=== PATIENT | female | born 1950 | race Hispanic/Latino ===

== ENCOUNTER → 2018-03-11 | Day surgery (SDC) | payer MEDICARE, OTHER ==
[2018-03-05 12:42] LABS: BASOPHILS % 0.6 % (0.0-1.0); EOSINOPHILS % 0.6 % (0.0-6.0); HEMATOCRIT 40.4 % (34.2-44.1); HEMOGLOBIN 13.3 g/dL (12.0-16.0); LYMPHOCYTES # (AUTO) 2.9 (1.0-3.2); LYMPHOCYTES % 43.3 % (18.0-39.1); MEAN CORPUSCULAR HEMOGLOBIN 30.1 pg (28-32); MEAN CORPUSCULAR HGB CONC 32.9 g/dL (31-35); MEAN CORPUSCULAR VOLUME 91.4 fL (81-99); MONOCYTES # (AUTO) 0.3 (0.2-0.8); MONOCYTES % 4.4 % (4.4-11.3); NEUTROPHILS # (AUTO) 3.5 (2.1-6.9); PLATELET COUNT 228 x10e3/uL (140-360); RED BLOOD COUNT 4.42 x10e6/uL (3.6-5.1); RED CELL DISTRIBUTION WIDTH 13.6 % (11.7-14.4)
[~2018-03-11] MED LIST: ANORO ELLIPTA INH; INHALER INH; MIDAZOLAM HCL 2 MG/2 ML VIAL ONE; PROPOFOL IV EMULSION 10 MG/ML 50 ML VIAL ONE
[2018-03-11 09:30] VITALS: BP 107/58
== END | disposition home or self-care (01) ==
LOC: OR 05:48
PROVIDERS: ATTEND Internal Medicine Gastroenterology
DX: R19.7 Diarrhea, unspecified (principal); R15.9 Full incontinence of feces; K57.30 Diverticulosis of large intestine without perforation or abscess without bleeding; K64.8 Other hemorrhoids; J45.909 Unspecified asthma, uncomplicated; Z88.6 Allergy status to analgesic agent; Z91.041 Radiographic dye allergy status; Z91.040 Latex allergy status; Z88.0 Allergy status to penicillin; Z91.048 Other nonmedicinal substance allergy status; Z01.810 Encounter for preprocedural cardiovascular examination; Z01.812 Encounter for preprocedural laboratory examination; Z79.02 Long term (current) use of antithrombotics/antiplatelets; Z79.82 Long term (current) use of aspirin; Z79.84 Long term (current) use of oral hypoglycemic drugs
CPT/HCPCS: 36415; 45378; 45380; 85025; 88305; 93005; J2250

== ENCOUNTER → 2018-06-17 | Day surgery (SDC) | payer MEDICARE ==
[2018-06-11 15:48] LABS: BASOPHILS % 0.5 % (0.0-1.0); EOSINOPHILS % 0.5 % (0.0-6.0); HEMATOCRIT 37.9 % (34.2-44.1); HEMOGLOBIN 12.5 g/dL (12.0-16.0); LYMPHOCYTES % 45.1 % (18.0-39.1); MEAN CORPUSCULAR HEMOGLOBIN 30.3 pg (28-32); MEAN CORPUSCULAR VOLUME 91.8 fL (81-99); MONOCYTES # (AUTO) 0.3 (0.2-0.8); MONOCYTES % 4.4 % (4.4-11.3); NEUTROPHILS # (AUTO) 3.3 (2.1-6.9); NEUTROPHILS % 49.3 % (38.7-80.0); PLATELET COUNT 208 x10e3/uL (140-360); RED BLOOD COUNT 4.13 x10e6/uL (3.6-5.1); RED CELL DISTRIBUTION WIDTH 13.4 % (11.7-14.4)
[~2018-06-17] MED LIST changes: +ALBUTEROL0.63 MG/3 INH; +FENTANYL CITRATE/PF 100MCG/2 ML INJ ONE; +PROAIR HFA INH8.5 GM INH
--- OUTSIDE RECORDS SUMMARY | 2018-06-17 10:01 | XMS REPORT ---
Author Author Admin, [place] Organization [facility] Address [address] [address] Phone Allergies, Adverse Reactions, Alerts Allergy Name Reaction Description Start Date Severity Status Provider LATEX Burning of skin Severe Active Estiven Erazo MD IODINE Seizures Critical Active Estiven Erazo MD OXYCODONE HCL ER Swelling and rash Critical Active Estiven Erazo MD PCN Seizures Critical Active Estiven Erazo MD Conditions or Problems Problem Name Problem Code Onset Date Status Entry Date Provider Comment Standard Description Annotate Diverticulosis, colon 562.10 Active Estiven Erazo MD Diverticulosis of colon (without mention of hemorrhage) Preoperative examination V72.84 Active Estiven Erazo MD Preoperative examination, unspecified Vaccine against flu/influenza V04.8 Active Estiven Erazo MD Need for prophylactic vaccination and inoculation against other viral diseases Viral infection 079.99 Active Christian Arredondo MD Unspecified viral infection Ankle pain, right 719.47 Active Estiven Erazo MD Pain in joint involving ankle and foot BMI 32.0-32.9 Active Estiven Erazo MD Body Mass Index 32.0-32.9, adult Pain in left hip 719.45 Active Estiven Erazo MD Pain in joint involving pelvic region and thigh Wrist pain, right 719.43 Active Estiven Erazo MD Pain in joint involving forearm Asthma, intermittent, with acute exacerbation 493.92 Active Estiven Erazo MD Asthma, unspecified with (acute) exacerbation ALLERGIC RHINITIS 477.9 Active Coleen Mix D.O. Allergic rhinitis, cause unspecified Osteopenia 733.90 Active Estiven Erazo MD Disorder of bone and cartilage, unspecified Obesity Active Estiven Erazo MD Obesity, unspecified Cough 786.2 Active Estiven Erazo MD Cough Cystitis, chronic interstitial 595.1 Active Estiven Erazo MD Chronic interstitial cystitis Mild intermittent asthma, uncomplicated 493.90 Active Estiven Erazo MD Asthma, unspecified Urinary incontinence 788.30 Active Estiven Erazo MD Urinary incontinence, unspecified Diabetes, Screening for V77.1 Inactive Estiven Erazo MD Screening for diabetes mellitus Diabetes, Screening for ICD-V77.1 Inactive Estiven Erazo MD Annual exam ICD-V70.0 Inactive Estiven Erazo MD BMI 30.0-30.9 Inactive Estiven Erazo MD Cholesterol, Screening ICD-V77.91 Inactive Estiven Erazo MD Mammogram, Screening ICD-V76.12 Inactive Estiven Erazo MD Osteoporosis, Screening ICD-V82.81 Inactive Estiven Erazo MD Vaccination for strep pneumonia with Prevnar 13 ICD-V03.82 Inactive Estiven Erazo MD Vaccine against flu/influenza ICD-V04.8 Inactive Estiven Erazo MD Annual exam V70.0 Resolved Estiven Erazo MD Routine general medical examination at a health care facility BMI 30.0-30.9 Resolved Estiven Erazo MD Body Mass Index 30.0-30.9, adult Cholesterol, Screening V77.91 Resolved Estiven Erazo MD Screening for lipoid disorders Mammogram, Screening V76.12 Resolved Estiven Erazo MD Other screening mammogram Osteoporosis, Screening V82.81 Resolved Estiven Erazo MD Screening for osteoporosis Vaccination for strep pneumonia with Prevnar 13 V03.82 Resolved Estiven Erazo MD Need for prophylactic vaccination against Streptococcus pneumoniae [pneumococcus] Vaccine against flu/influenza V04.8 Resolved Estiven Erazo MD Need for prophylactic vaccination and inoculation against other viral diseases Medication List Medication Instructions Start Date Stop Date Generic Name NDC Status Provider Patient Instruction PROMETHAZINE VC/CODEINE 6.25-5-10 MG/5ML ORAL SYRUP 1 tsp by mouth every 4 hours as needed for cough [id number] Active Pearl Murillo MD R2 Active ONDANSETRON 8 MG ORAL TABLET DISINTEGRATING 1 tab By Mouth Three Times a Day As Needed nausea ONDANSETRON 95713809573 Active Estiven Erazo MD Active MOMETASONE FUROATE 50 MCG/ACT NASAL SUSPENSION 1 spray in each nostril Twice a Day MOMETASONE FUROATE 53725130579 Active Estiven Erazo MD Active NAPROXEN 375 MG ORAL TABLET 1 tab By Mouth Twice a Day As Needed for pain NAPROXEN 71726993832 Active Estiven Erazo MD Active LORATADINE 5 MG/5ML ORAL SYRUP 10 ml by mouth nightly LORATADINE 80753954119 Active Coleen M Ehdaie D.O. Active FELA-CITRATE PLUS VITAMIN D 250-100 MG-UNIT ORAL TABLET 1 tab By Mouth Twice a Day CALCIUM CITRATE-VITAMIN D 66837754421 Active Estiven Erazo MD Active A + D PERSONAL CARE WIPES use daily As Needed INCONTINENCE SUPPLY DISPOSABLE 84050802055 Active Estiven Erazo MD Active ADVOCATE UNDERPADS use daily As Needed INCONTINENCE SUPPLY DISPOSABLE 68030706314 Active Estiven Erazo MD Active ALBUTEROL SULFATE (2.5 MG/3ML) 0.083% INHALATION NEBULIZATION SOLUTION 1 via Hand held neb every 4 - 6 hours as needed ALBUTEROL SULFATE 16209858549 Active Estiven Erazo MD Active DEPEND ADJUSTABLE UNDERWEAR LG use daily As Needed INCONTINENCE SUPPLY DISPOSABLE 26844658607 Active Estiven Erazo MD Active PROAIR HFA 108 (90 BASE) MCG/ACT INHALATION AEROSOL SOLUTION 2 puffs every 4 - 6 hours as needed ALBUTEROL SULFATE 66465195707 Active Estiven Erazo MD Active AZITHROMYCIN 250 MG ORAL TABLET 2 tablets by mouth on day one then one tablet by mouth each day for a total of 5 days AZITHROMYCIN 250 MG ORAL TABLET 871123 AZITHROMYCIN Inactive PREDNISONE 20 MG ORAL TABLET 2 tabs By Mouth daily x 5 days PREDNISONE 20 MG ORAL TABLET 896904 PREDNISONE Inactive BROMFED DM 30-2-10 MG/5ML ORAL SYRUP 5 ml By Mouth Three Times a Day As Needed BROMFED DM 30-2-10 MG/5ML ORAL SYRUP 3879064 [id number] Inactive AZITHROMYCIN 250 MG ORAL TABLET 2 tablets by mouth on day one then one tablet by mouth each day for a total of 5 days AZITHROMYCIN 250 MG ORAL TABLET 270225 AZITHROMYCIN Inactive AZITHROMYCIN 250 MG ORAL TABLET 2 tablets by mouth on day one then one tablet by mouth each day for a total of 5 days AZITHROMYCIN 250 MG ORAL TABLET 324495 AZITHROMYCIN Inactive PROMETHAZINE-CODEINE 6.25-10 MG/5ML ORAL SYRUP 5 ml By Mouth Three Times a Day As Needed for cough PROMETHAZINE-CODEINE 6.25-10 MG/5ML ORAL SYRUP 645931 PROMETHAZINE-CODEINE Inactive PROMETHAZINE-CODEINE 6.25-10 MG/5ML ORAL SYRUP 5 ml By Mouth Three Times a Day As Needed for cough PROMETHAZINE-CODEINE 6.25-10 MG/5ML ORAL SYRUP 459462 PROMETHAZINE-CODEINE Inactive FLONASE ALLERGY RELIEF 50 MCG/ACT NASAL SUSPENSION 2 sprays each nostril every day FLONASE ALLERGY RELIEF 50 MCG/ACT NASAL SUSPENSION 4830954 FLUTICASONE PROPIONATE Inactive PROMETHAZINE-CODEINE 6.25-10 MG/5ML ORAL SYRUP 5 ml po Four Times a Day As Needed for cough PROMETHAZINE-CODEINE 6.25-10 MG/5ML ORAL SYRUP 495685 PROMETHAZINE-CODEINE Inactive AZITHROMYCIN 250 MG ORAL TABLET 2 tablets by mouth on day one then one tablet by mouth each day for a total of 5 days AZITHROMYCIN 79761767513 No Longer Active Estiven Erazo MD Active PREDNISONE 20 MG ORAL TABLET 2 tabs By Mouth daily x 5 days PREDNISONE 45056987696 No Longer Active Estiven Erazo MD Active BROMFED DM 30-2-10 MG/5ML ORAL SYRUP 5 ml By Mouth Three Times a Day As Needed [id number] 22735591826 No Longer Active Christian Arredondo MD Active AZITHROMYCIN 250 MG ORAL TABLET 2 tablets by mouth on day one then one tablet by mouth each day for a total of 5 days AZITHROMYCIN 42791833984 No Longer Active Estiven Erazo MD Active AZITHROMYCIN 250 MG ORAL TABLET 2 tablets by mouth on day one then one tablet by mouth each day for a total of 5 days AZITHROMYCIN 97979079422 No Longer Active Estiven Erazo MD Active PROMETHAZINE-CODEINE 6.25-10 MG/5ML ORAL SYRUP 5 ml By Mouth Three Times a Day As Needed for cough PROMETHAZINE-CODEINE 70306126506 No Longer Active Estiven Erazo MD Active PROMETHAZINE-CODEINE 6.25-10 MG/5ML ORAL SYRUP 5 ml By Mouth Three Times a Day As Needed for cough PROMETHAZINE-CODEINE 94131914619 No Longer Active Estiven Erazo MD Active FLONASE ALLERGY RELIEF 50 MCG/ACT NASAL SUSPENSION 2 sprays each nostril every day FLUTICASONE PROPIONATE 65091615220 No Longer Active Estiven Erazo MD Active PROMETHAZINE-CODEINE 6.25-10 MG/5ML ORAL SYRUP 5 ml po Four Times a Day As Needed for cough PROMETHAZINE-CODEINE 37759781445 No Longer Active Estiven Erazo MD Active Immunizations Vaccine Administration Date Value Standard Description influenza immunization (Flu Vax) has been administered given influenza virus vaccine, unspecified formulation influenza immunization (Flu Vax) has been administered given influenza virus vaccine, unspecified formulation PEDIATRIC PNEUMOCOCCAL VACCINE ([id number]) #1 given pneumococcal conjugate vaccine, 13 valent Vital Signs Date Name Value Unit Range Description blood pressure, diastolic, second observation 78 mm[Hg] BP ellington blood pressure, diastolic 78 mm[Hg] BP ellington blood pressure, systolic, second observation 123 mm[Hg] BP sys blood pressure, systolic 123 mm[Hg] BP sys height E&M 59 [in_us] Bdy height pulse rate E&M 88 /min Heart rate respiratory rate E&M 18 /min Resp rate temperature E&M 98 [degF] Body temperature weight E&M 158 [lb_av] Weight Measured blood pressure, diastolic 73 mm[Hg] BP ellington blood pressure, systolic 111 mm[Hg] BP sys height E&M 59 [in_us] Bdy height pulse rate E&M 92 /min Heart rate respiratory rate E&M 20 /min Resp rate temperature E&M 97.8 [degF] Body temperature weight E&M 159.80 [lb_av] Weight Measured blood pressure, diastolic 74 mm[Hg] BP ellington blood pressure, systolic 120 mm[Hg] BP sys height E&M 59 [in_us] Bdy height pulse rate E&M 87 /min Heart rate respiratory rate E&M 16 /min Resp rate temperature E&M 98.1 [degF] Body temperature weight E&M 157 [lb_av] Weight Measured blood pressure, diastolic 75 mm[Hg] BP ellington blood pressure, systolic 137 mm[Hg] BP sys height E&M 59 [in_us] Bdy height pulse rate E&M 93 /min Heart rate respiratory rate E&M 22 /min Resp rate temperature E&M 98 [degF] Body temperature weight E&M 157.60 [lb_av] Weight Measured blood pressure, diastolic 85 mm[Hg] BP ellington blood pressure, systolic 131 mm[Hg] BP sys height E&M 59 [in_us] Bdy height pulse rate E&M 83 /min Heart rate respiratory rate E&M 18 /min Resp rate temperature E&M 98.0 [degF] Body temperature weight E&M 159.60 [lb_av] Weight Measured blood pressure, diastolic 75 mm[Hg] BP ellington blood pressure, systolic 123 mm[Hg] BP sys height E&M 59 [in_us] Bdy height pulse rate E&M 79 /min Heart rate respiratory rate E&M 16 /min Resp rate temperature E&M 97.9 [degF] Body temperature weight E&M 162 [lb_av] Weight Measured blood pressure, diastolic 75 mm[Hg] BP ellington blood pressure, systolic 116 mm[Hg] BP sys height E&M 59 [in_us] Bdy height pulse rate E&M 80 /min Heart rate respiratory rate E&M 19 /min Resp rate temperature E&M 97.9 [degF] Body temperature weight E&M 161 [lb_av] Weight Measured blood pressure, diastolic 75 mm[Hg] BP ellington blood pressure, systolic 118 mm[Hg] BP sys height E&M 59 [in_us] Bdy height pulse rate E&M 78 /min Heart rate respiratory rate E&M 94 /min Resp rate temperature E&M 98.1 [degF] Body temperature weight E&M 158.13 [lb_av] Weight Measured blood pressure, diastolic 77 mm[Hg] BP ellington blood pressure, systolic 136 mm[Hg] BP sys height E&M 59 [in_us] Bdy height pulse rate E&M 80 /min Heart rate respiratory rate E&M 20 /min Resp rate temperature E&M 98.5 [degF] Body temperature weight E&M 153 [lb_av] Weight Measured blood pressure, diastolic, second observation 90 mm[Hg] BP ellington blood pressure, diastolic 90 mm[Hg] BP ellington blood pressure, systolic, second observation 132 mm[Hg] BP sys blood pressure, systolic 132 mm[Hg] BP sys height E&M 59 [in_us] Bdy height pulse rate E&M 92 /min Heart rate respiratory rate E&M 18 /min Resp rate temperature E&M 97.7 [degF] Body temperature weight E&M 152.60 [lb_av] Weight Measured blood pressure, diastolic 85 mm[Hg] BP ellington blood pressure, systolic 134 mm[Hg] BP sys height E&M 59 [in_us] Bdy height pulse rate E&M 105 /min Heart rate respiratory rate E&M 16 /min Resp rate temperature E&M 98.0 [degF] Body temperature weight E&M 150.20 [lb_av] Weight Measured Diagnostic Results Date Name Value Unit Range Description Lab Report: CBC With Differential/Platelet, Comp. Metabolic Panel (14), ... - Hematology hematocrit, blood 40.1 % 34.0-46.6 Lab Report: CBC With Differential/Platelet, Comp. Metabolic Panel (14), ... - Chemistry sodium, serum 141 mmol/L 134-144 Lab Report: CBC With Differential/Platelet, Comp. Metabolic Panel (14), ... - Hematology neutrophils as percent of blood leukocytes 57 % Not Estab. basophils as percent of blood leukocytes 0 % Not Estab. Lab Report: CBC With Differential/Platelet, Comp. Metabolic Panel (14), ... - Chemistry carbon dioxide, venous blood 23 mmol/L 20-29 Lab Report: Uric Acid - Chemistry uric acid, serum 4.7 mg/dL 2.5-7.1 Lab Report: CBC With Differential/Platelet, Comp. Metabolic Panel (14), ... - Chemistry chloride, serum 101 mmol/L 96-106 calcium, serum 9.5 mg/dL 8.7-10.3 urea nitrogen, blood 12 mg/dL 8-27 alanine aminotransferase (SGPT), serum 21 U/L 0-32 Lab Report: CBC With Differential/Platelet, Comp. Metabolic Panel (14), ... - Hematology mean corpuscular hemoglobin, RBC 29.4 pg 26.6-33.0 mean corpuscular hemoglobin concentration, RBC 32.2 G/DL % 31.5-35.7 Lab Report: CBC With Differential/Platelet, Comp. Metabolic Panel (14), ... - Chemistry protein, total, serum 7.4 g/dL 6.0-8.5 alkaline phosphatase, serum 122 U/L 39-117 Lab Report: CBC With Differential/Platelet, Comp. Metabolic Panel (14), ... - Hematology erythrocyte (RBC) count 4.39 X10E6/UL 10*6/mm3 3.77-5.28 hemoglobin, blood 12.9 g/dL 11.1-15.9 Lab Report: CBC With Differential/Platelet, Comp. Metabolic Panel (14), ... - Chemistry Absolute Neutrophils 4.1 X10E3/UL 10*3/uL 1.4-7.0 Lab Report: CBC With Differential/Platelet, Comp. Metabolic Panel (14), ... - Hematology erythrocyte sedimentation rate 2 mm/h 0-40 Lab Report: CBC With Differential/Platelet, Comp. Metabolic Panel (14), ... - Chemistry urea nitrogen/creatinine ratio, serum 17 12-28 Lab Report: CBC With Differential/Platelet, Comp. Metabolic Panel (14), ... - Hematology lymphocytes as percent of blood leukocytes 39 % Not Estab. Office Visit: Acute Visit Dr erazo rm 2 - Chemistry hemoglobin A1C, blood, as % of total hemoglobin 5.5 % Lab Report: CBC With Differential/Platelet, Comp. Metabolic Panel (14), ... - Hematology mean corpuscular volume, RBC 91 fL 79-97 Lab Report: CBC With Differential/Platelet, Comp. Metabolic Panel (14), ... - Genetics/fertility eGFR if 104 mL/min/1.73m2 >59 Lab Report: CBC With Differential/Platelet, Comp. Metabolic Panel (14), ... - Hematology basophil count, absolute 0.0 x10E3/uL 0.0-0.2 monocytes as percent of blood leukocytes 4 % Not Estab. Lab Report: CBC With Differential/Platelet, Comp. Metabolic Panel (14), ... - Chemistry globulin, serum 2.7 1.5-4.5 creatinine, serum 0.70 mg/dL 0.57-1.00 Estimated Glomerular Filtration Rate (calc) 90 mL/min/1.73m2 >59 albumin/globulin ratio, serum 1.7 1.2-2.2 bilirubin, serum, total 0.7 mg/dL 0.0-1.2 Lab Report: CBC With Differential/Platelet, Comp. Metabolic Panel (14), ... - Hematology Eosinophil Absolute Count 0.0 X10E3/UL 10*3/uL 0.0-0.4 eosinophils as percent of blood leukocytes 0 % Not Estab. Lab Report: CBC With Differential/Platelet, Comp. Metabolic Panel (14), ... - Chemistry blood glucose, random 92 mg/dL 65-99 aspartate aminotransferase (SGOT), serum 22 U/L 0-40 Lab Report: CBC With Differential/Platelet, Comp. Metabolic Panel (14), ... - Hematology red blood cell distribution width 14.6 % 12.3-15.4 Lab Report: CBC With Differential/Platelet, Comp. Metabolic Panel (14), ... - Serology rheumatoid factor <10.0 IU/mL [iU]/mL 0.0-13.9 Lab Report: CBC With Differential/Platelet, Comp. Metabolic Panel (14), ... - Hematology leukocyte count, blood 7.4 X10E3/UL 10*3/mm3 3.4-10.8 Lab Report: CBC With Differential/Platelet, Comp. Metabolic Panel (14), ... - Chemistry potassium, serum 4.3 mmol/L 3.5-5.2 Lab Report: CBC With Differential/Platelet, Comp. Metabolic Panel (14), ... - Hematology monocyte count, blood, automated 0.3 X10E3/UL 10*3/uL 0.1-0.9 Lab Report: CBC With Differential/Platelet, Comp. Metabolic Panel (14), ... - Chemistry immature granulocytes, percentage of total cells, blood 0 % Not Estab. albumin, serum 4.7 g/dL 3.6-4.8 Lab Report: CBC With Differential/Platelet, Comp. Metabolic Panel (14), ... - Hematology platelet count 254 X10E3/UL 10*3/mm3 724-320 9170/06/27 lymphocyte count, blood, automated 2.9 X10E3/UL 10*3/mm3 0.7-3.1 Encounters Date Encounter Provider Code Facility 23:01:55 TECHNICAL ADMINISTRATIVE ASSISTANT Est Patient Exp Problem - 49315 Estiven Erazo MD [id number] [facility] 16:41:54 CDT Est Patient Exp Problem - 30286 Estiven Erazo MD [id number] [facility] 17:15:45 CDT Est Patient Exp Problem - 26542 Estiven Erazo MD CPT-23641 [facility] 17:59:05 CDT Est Patient Exp Problem - 38773 Pearl Murillo MD CPT-80485 [facility] 12:31:51 CDT Est Patient Exp Problem - 17629 Estiven Erazo MD [id number] [facility] 13:32:22 CDT Est Patient Exp Problem - 08455 Estiven Erazo MD CPT-09417 [facility] 12:53:02 CDT Est Patient Exp Problem - 34188 Estiven Erazo MD CPT-86157 [facility] 13:46:07 CDT Est Patient Exp Problem - 91889 Estiven Erazo MD CPT-70305 [facility] 12:40:34 CDT Est Patient Exp Problem - 06083 Estiven Erazo MD CPT-99130 [facility] 15:59:37 CDT Est Patient Exp Problem - 55499 Coleen Mix D.O. CPT-04539 [facility] 11:47:34 TECHNICAL ADMINISTRATIVE ASSISTANT New Patient Detailed - 30634 Estiven Erazo MD CPT-56983 [facility] Procedures Code Procedure Name Date Entry Date Standard Description CPT-J1885 Injection, ketorolac tromethamine (toradol), per 15 mg 12:31:51 CDT CPT-44798 HEMOGLOBIN A1C - In House 13:46:07 CDT CPT-49362 Admin of Vaccine - Injection - Each Add'l 11:47:34 TECHNICAL ADMINISTRATIVE ASSISTANT CPT-56127 Admin of Vaccine - Injection - 1 11:47:34 TECHNICAL ADMINISTRATIVE ASSISTANT CPT-65638 INFLUENZA VACCINE QUADRIVALENT 3 YRS PLUS IM 11:47:34 TECHNICAL ADMINISTRATIVE ASSISTANT CPT-47981 Prevnar (PCV13) IM 11:47:34 TECHNICAL ADMINISTRATIVE ASSISTANT CPT-J2920 Injection, methylprednisolone sodium succinate, up to 40 mg 12:40:34 CDT
--- OUTSIDE RECORDS SUMMARY | 2018-06-17 10:01 | XMS REPORT | Clinical Summary ---
Author Author [facility] Organization [facility] Address Unknown Phone Unavailable Care Team Providers Care Director Of Music Therapy Name Role Phone Ankur Buchanan MD PCP Allergies Comments Active Allergy Reactions Severity Noted Date Codeine 10/03/2016 seizures Iodine Other (See 10/03/2016 Comments) Latex 10/03/2016 Penicillins Diarrhea 10/03/2016 Acetaminophen 10/03/2016 Medications End Date Status Medication Sig Dispensed Refills Start Date Active ondansetron (ZOFRAN) 4 MG 0 tablet 7 Active albuterol (PROAIR HFA) 90 2 puffs every 0 mcg/actuation inhaler 4 - 6 hours 8 as needed Active CALCIUM CITRATE-VITAMIN 1 tab By 0 D2 ORAL Mouth Twice a 8 Day Active loratadine 10 mg capsule 10 ml by 0 mouth nightly 8 01/06/2018 Discontinued naproxen (NAPROSYN) 375 Take 375 mg 0 MG tablet by mouth 2 (two) times a day with meals. 02/05/2018 nabumetone (RELAFEN) 500 Take 1 tablet 60 tablet 5 MG tablet (500 mg 8 total) by mouth 2 (two) times a day for 60 doses. Active Problems Problem Noted Date Greater trochanteric bursitis of left hip 01/06/2018 Moderate persistent asthma without complication 10/03/2016 Encounters Care Team Description Date Type Specialty Estiven Erazo MD Cough 03/10/2018 Hospital Radiology Encounter Estiven Erazo MD Cough 03/10/2018 Hospital Radiology Encounter Hemal Juarez MD Greater trochanteric bursitis of left hip (Primary Dx) 01/06/2018 Office Visit Orthopedic Surgery Estiven Erazo MD Left hip pain 12/19/2017 Hospital Radiology Encounter Estiven Erazo MD Left hip pain 12/19/2017 Hospital Radiology Encounter after 06/16/2017 Family History Medical History Relation Name Comments Liver disease Father Cancer Mother lung Relation Name Status Comments Father Mother Social History Date Tobacco Use Types Packs/Day Years Used Never Smoker Smokeless Tobacco: Never Used Sex Assigned at Date Recorded Not on file Industry Job Start Date Occupation Not on file Not on file Not on file Travel End Travel History Travel Start No recent travel history available. Last Filed Vital Signs Time Taken Vital Sign Reading - Blood Pressure - - Pulse - - Temperature - - Respiratory Rate - - Oxygen Saturation - - Inhaled Oxygen - Concentration 01/06/2018 11:11 AM CDT Weight 73.5 kg (162 lb) 01/06/2018 11:11 AM CDT Height 149.9 cm (4' 11") 01/06/2018 11:11 AM CDT Body Mass Index 32.72 Plan of Treatment Health Maintenance Due Date Last Done Comments BREAST CANCER SCREENING 2000 COLON CANCER SCREENING 2000 SHINGLES VACCINES (1 of 2000 2) PNEUMOCOCCAL 2015 POLYSACCHARIDE VACCINE AGE 65 AND OVER INFLUENZA VACCINE 02/27/2019 Postponed from 01/08/2018 (Patient Refused) PNEUMOCOCCAL-13 02/27/2019 Postponed from 2015 (Patient Refused) Procedures Comments Procedure Name Priority Date/Time Associated Diagnosis XR CHEST 2 VW Routine 03/10/2018 Cough 12:36 PM CDT XR ANKLE 2 VW RIGHT Routine 03/10/2018 Cough 12:35 PM CDT XR HIP 2-3 VIEWS LEFT Routine 12/19/2017 Left hip pain 3:42 PM CDT XR WRIST 3+ VW RIGHT Routine 12/19/2017 Left hip pain 3:41 PM CDT after 06/16/2017 Results * XR Chest 2 Vw (03/10/2018 12:36 PM CDT) Narrative Performed At EXAMINATION:XR CHEST 2 VW [facility] CLINICAL HISTORY: R05 Cough COMPARISON:10/23/2012 IMPRESSION: No active disease in the chest. Lungs are clear. Cardiomediastinal silhouette is within normal limits. No effusion or pneumothorax noted. Visualized osseous structures are intact. [facility]-[id number] Procedure Note Interface, Radiology Results Incoming - 03/10/2018 12:48 PM CDT EXAMINATION: XR CHEST 2 VW CLINICAL HISTORY: R05 Cough COMPARISON: 10/23/2012 IMPRESSION: No active disease in the chest. Lungs are clear. Cardiomediastinal silhouette is within normal limits. No effusion or pneumothorax noted. Visualized osseous structures are intact. [facility]-[id number] Performing Organization Address [facility] Phone Number [facility] [address] [place] [address] * XR Ankle 2 Vw Right (03/10/2018 12:35 PM CDT) Narrative Performed At EXAMINATION:XR ANKLE 2 VW RIGHT [facility] INDICATION:R05 Cough COMPARISON:None IMPRESSION: 1.No acute fracture or dislocation. Ankle mortise is symmetric. Evaluation is slightly limited by lack of oblique view. 2.Mineralization in the region of the Achilles tendon could be related to prior partial tears or mineral deposition. Plantar calcaneal spur is present. 3.Diffuse soft tissue swelling about the ankle. [facility]-[id number] Procedure Note Interface, Radiology Results Incoming - 03/10/2018 12:53 PM CDT EXAMINATION: XR ANKLE 2 VW RIGHT INDICATION: R05 Cough COMPARISON:None IMPRESSION: 1. No acute fracture or dislocation. Ankle mortise is symmetric. Evaluation is slightly limited by lack of oblique view. 2. Mineralization in the region of the Achilles tendon could be related to prior partial tears or mineral deposition. Plantar calcaneal spur is present. 3. Diffuse soft tissue swelling about the ankle. [facility]-[id number] Performing Organization Address [facility]/[employer] Phone Number [facility] [address] [place] [address] * XR Hip 2-3 View Left (12/19/2017 3:42 PM CDT) Narrative Performed At EXAMINATION:XR HIP 2-3 VIEWS LEFT [facility] CLINICAL HISTORY:M25.552 Pain in left hip COMPARISON:None. IMPRESSION: There is no evidence of left hip fracture, dislocation, or joint effusion. Bone mineralization is normal. Mild degenerative changes are present with marginal osteophyte formation. Presumed pelvic phleboliths are seen. [facility]-[id number] Procedure Note Hm Interface, Radiology Results Incoming - 12/19/2017 3:56 PM CDT EXAMINATION: XR HIP 2-3 VIEWS LEFT CLINICAL HISTORY: M25.552 Pain in left hip COMPARISON: None. IMPRESSION: There is no evidence of left hip fracture, dislocation, or joint effusion. Bone mineralization is normal. Mild degenerative changes are present with marginal osteophyte formation. Presumed pelvic phleboliths are seen. [id number] Performing Organization Address City/[facility]/Zipcode Phone Number [facility] [address] [place] [address] * XR Wrist 3+ Vw Right (12/19/2017 3:41 PM CDT) Narrative Performed At EXAMINATION:XR WRIST 3VW RIGHT [facility] CLINICAL HISTORY:M25.552 Pain in left hip COMPARISON:None. IMPRESSION: There is no evidence of acute right wrist fracture or dislocation. [id number] Procedure Note Hm Interface, Radiology Results Incoming - 12/19/2017 3:57 PM CDT EXAMINATION: XR WRIST 3 VW RIGHT CLINICAL HISTORY: M25.552 Pain in left hip COMPARISON: None. IMPRESSION: There is no evidence of acute right wrist fracture or dislocation. [id number] Performing Organization Address [facility] Phone Number [facility] [address] [place] [address] after 06/16/2017 Insurance Payer Benefit Subscriber ID Type Phone Address Plan / Group MEDICARE MEDICARE xxxxxxxxxxx Medicare [place], [place] PART A AND B COMMERCIAL MISC MISC xxxxxxxxx Commercial COMMERCIAL Advance Directives Patient has advance care planning documents on file. For more information, jess worthington contact: Kendell Min [address] [place] [address]
[2018-06-17 12:45] VITALS: BP 108/71
== END | disposition home or self-care (01) ==
LOC: OR 09:57
PROVIDERS: ATTEND Internal Medicine Gastroenterology
DX: K21.0 Gastro-esophageal reflux disease with esophagitis (principal); K29.50 Unspecified chronic gastritis without bleeding; K31.89 Other diseases of stomach and duodenum; K44.9 Diaphragmatic hernia without obstruction or gangrene; K59.00 Constipation, unspecified; I25.10 Atherosclerotic heart disease of native coronary artery without angina pectoris; J45.909 Unspecified asthma, uncomplicated; Z88.6 Allergy status to analgesic agent; Z91.040 Latex allergy status; Z88.0 Allergy status to penicillin; Z91.048 Other nonmedicinal substance allergy status; Z01.810 Encounter for preprocedural cardiovascular examination; Z01.812 Encounter for preprocedural laboratory examination; Z79.82 Long term (current) use of aspirin; Z79.84 Long term (current) use of oral hypoglycemic drugs; Z79.02 Long term (current) use of antithrombotics/antiplatelets
CPT/HCPCS: 36415; 43239; 85025; 88305; 88312; 93005; J2250

== ENCOUNTER → 2018-11-27 | Outpatient (CLI) | payer MEDICARE ==
[~2018-11-27] MED LIST changes: -FENTANYL CITRATE/PF 100MCG/2 ML INJ ONE; +GADOBENATE DIMEGLUMINE 1 ML IV ONE; -MIDAZOLAM HCL 2 MG/2 ML VIAL ONE; -PROPOFOL IV EMULSION 10 MG/ML 50 ML VIAL ONE; +SODIUM CHLORIDE 0.9% 100 ML 100 ML ONE
--- NOTE | 2018-11-28 16:04 | Diagnostic Imaging Report ---
MRI ABDOMEN AND PELVIS Indication: 2 years of diffuse abdominal and pelvic pain Technique: Multiplanar, multi-sequential MRI was performed both before and after the intravenous administration of 14 cc of gadolinium. Comparison: None Findings: Lung bases: Mild bibasilar atelectasis. Visualized portion of the mediastinum is normal Liver: Normal T1 and T2 signal. The liver measures 16 cm in maximum dimension. No evidence of mass. Normal enhancement Gallbladder: Absent Biliary tree: Mild central intrahepatic biliary duct distention. The cystic duct is normal in appearance. The proximal common bile duct measures 9 mm in diameter. The mid common bile duct measures 8 mm in diameter. The distal common bile duct measures 4 mm in diameter. No intraluminal filling defects. No evidence of beading or narrowing. Pancreas: Normal T1 and T2 signal. No mass or ductal dilatation. Spleen: Normal size and signal. No mass Adrenal glands: No mass. Kidneys: No hydronephrosis. Symmetric enhancement of the parenchyma. No evidence of mass Lymph nodes: No enlarged abdominal, mesenteric, or retroperitoneal lymph nodes Bowel: Stomach:Normal. Small bowel:Normal in diameter with normal wall thickness. Large bowel:Normal in diameter with normal wall thickness. Appendix: Not visualized and may be absent. Bladder: Normal. Uterus: Absent. There are no adnexal masses. Peritoneum/retroperitoneum: No free fluid or fluid collection. Vasculature: Normal in morphology and widely patent. Bones: Normal marrow signal. Mild levoscoliosis of the lumbar spine. Diffuse degenerative changes of the spine. Soft tissues: Midline abdominal wall scar. No evidence of hernia. IMPRESSION: 1. Postoperative changes as described above. No evidence of mass or lymphadenopathy on this general abdomen protocol MRI to explain diffuse abdominal pain. MRI is not a substitute for screening studies such as colonoscopy. 2. Mild biliary ductal distention secondary to reservoir effect. Signed by: Dr. Bony Daley MD on 11/28/2018 4:01 PM
== END ==
LOC: MRI 12:50
PROVIDERS: ATTEND Internal Medicine Gastroenterology
DX: R10.84 Generalized abdominal pain (principal)
CPT/HCPCS: 72197; 74183

== ENCOUNTER → 2018-12-26 | Day surgery (SDC) | payer MEDICARE, OTHER ==
[2018-12-24 16:06] LABS: BASOPHILS % 0.3 % (0.0-1.0); EOSINOPHILS # (AUTO) 0.1 (0.0-0.4); EOSINOPHILS % 0.7 % (0.0-6.0); HEMATOCRIT 38.9 % (34.2-44.1); HEMOGLOBIN 12.7 g/dL (12.0-16.0); LYMPHOCYTES % 43.8 % (18.0-39.1); MEAN CORPUSCULAR HEMOGLOBIN 29.3 pg (28-32); MEAN CORPUSCULAR HGB CONC 32.6 g/dL (31-35); MEAN CORPUSCULAR VOLUME 89.8 fL (81-99); MONOCYTES # (AUTO) 0.3 (0.2-0.8); MONOCYTES % 4.2 % (4.4-11.3); NEUTROPHILS # (AUTO) 3.5 (2.1-6.9); NEUTROPHILS % 50.4 % (38.7-80.0); PLATELET COUNT 237 x10e3/uL (140-360); RED BLOOD COUNT 4.33 x10e6/uL (3.6-5.1); RED CELL DISTRIBUTION WIDTH 13.2 % (11.7-14.4)
--- NOTE | 2018-12-24 16:06 | Diagnostic Imaging Report ---
EXAMINATION: CHEST 2 VIEWS INDICATION: Preop. Bladder surgery ^PRE-OP ORDERS ^[id number] ^1517 COMPARISON: None FINDINGS: TUBES and LINES: None. LUNGS: Lungs are well inflated. Lungs are clear. There is no evidence of pneumonia or pulmonary edema. PLEURA: No pleural effusion or pneumothorax. HEART AND MEDIASTINUM: The cardiomediastinal silhouette is unremarkable. BONES AND SOFT TISSUES: No acute osseous lesion. Soft tissues are unremarkable. UPPER ABDOMEN: No free air under the diaphragm. IMPRESSION: No acute thoracic abnormality. Signed by: Dr. Heriberto Oro M.D. on 12/24/2018 4:02 PM
[2018-12-24 16:15] LABS: INR 1.06; PROTHROMBIN TIME 14.3 seconds (11.9-14.5)
[2018-12-24 16:16] LABS: PARTIAL THROMBOPLASTIN TIME 30.3 seconds (23.8-35.5)
[2018-12-24 16:25] LABS: ALANINE AMINOTRANSFERASE 24 IU/L (0-55); ALBUMIN 4.2 g/dL (3.5-5.0); ALBUMIN/GLOBULIN RATIO 1.3 (0.8-2.0); ALKALINE PHOSPHATASE 95 IU/L (40-150); ANION GAP 12.8 mmol/L (8-16); BLOOD UREA NITROGEN 15 mg/dL (7-26); BUN/CREATININE RATIO 20 (6-25); CALCIUM 9.5 mg/dL (8.4-10.2); CARBON DIOXIDE 25 mmol/L (22-29); CHLORIDE 103 mmol/L (98-107); CREATININE, SERUM 0.74 mg/dL (0.57-1.11); EST GLOMERULAR FILTRATION RATE > 60 ML/MIN (60-); GLUCOSE 81 mg/dL (74-118); POTASSIUM 3.8 mmol/L (3.5-5.1); SODIUM 137 mmol/L (136-145)
[~2018-12-26] MED LIST changes: +DEXAMETHASONE SOD PHOS INJ 4 MG/ML VIAL ONE; +DICYCLOMINE HCL20 MG PO; +FENTANYL CITRATE/PF 100MCG/2 ML INJ ONE; -GADOBENATE DIMEGLUMINE 1 ML IV ONE; +LIDOCAINE HCL 2% LOCAL INJ 5 ML SDV VIAL INJ ONE; +MACROBID 100 M100 MG PO; +MIDAZOLAM HCL 2 MG/2 ML VIAL ONE; +ONDANSETRON HCL INJ 2MG/ML 2ML 2 MG/ML VIAL ONE; +PHENAZOPYRIDIN100 MG PO; +PROPOFOL IV EMULSION 10 MG/ML 20 ML VIAL ONE; +SEVOFLURANE INHAL SOLN 250 ML PEN BTL ONE; -SODIUM CHLORIDE 0.9% 100 ML 100 ML ONE; +URIBEL CAPSULE1 EACH PO
--- OUTSIDE RECORDS SUMMARY | 2018-12-26 10:10 | XMS REPORT ---
Author Author Admin, [place] Organization [facility] Address [address] [facility] [address] [address] Phone Allergies, Adverse Reactions, Alerts Allergy Name [...] Entry Date Provider Comment Standard Description Annotate Anxiety 300.00 Active Estiven Erazo MD Anxiety state, unspecified Insomnia 780.52 Active Estiven Erazo MD Insomnia, unspecified Abnormal electrocardiogram 794.31 Active Estiven Erazo MD Nonspecific abnormal electrocardiogram [ECG] [EKG] ASTHMA UNSPECIFIED WITH EXACERBATION 493.92 Active Estiven Erazo MD Asthma, unspecified with (acute) exacerbation Diverticulosis, colon 562.10 Active Estiven Erazo MD Diverticulosis of colon (without mention of hemorrhage) Ankle pain, right 719.47 Active Estiven Erazo [...] Active Estiven Erazo MD Urinary incontinence, unspecified Preoperative examination ICD-V72.84 Inactive Estiven Erazo MD Vaccine against flu/influenza ICD-V04.8 Inactive Estiven Erazo MD Viral infection ICD-079.99 Inactive Estiven Erazo MD Diabetes, Screening for V77.1 Inactive Estiven Erazo [...] against flu/influenza ICD-V04.8 Inactive Estiven Erazo MD Preoperative examination V72.84 Resolved sEtiven Erazo MD Preoperative examination, unspecified Vaccine against flu/influenza V04.8 Resolved Estiven Erazo MD Need for prophylactic vaccination and inoculation against other viral diseases Viral infection 079.99 Resolved Estiven Erazo MD Unspecified viral infection Annual exam V70.0 Resolved Estiven Erazo MD [...] Generic Name NDC Status Provider Patient Instruction MOMETASONE FUROATE 50 MCG/ACT NASAL SUSPENSION 1 spray in each nostril Twice a Day MOMETASONE FUROATE 72869162886 Active Estiven Erazo MD Active NAPROXEN 375 MG ORAL TABLET 1 tab By Mouth Twice a Day As Needed for pain NAPROXEN 14531590224 Active Estiven Erazo MD Active LORATADINE 5 MG/5ML ORAL SYRUP 10 ml by mouth nightly LORATADINE 08065942458 Active Coleen Mix D.O. Active FELA-CITRATE PLUS VITAMIN D 250-100 MG-UNIT ORAL TABLET 1 tab By Mouth Twice a Day CALCIUM CITRATE-VITAMIN D 14731677270 Active Estiven Erazo MD Active A + D PERSONAL CARE WIPES use daily As Needed INCONTINENCE SUPPLY DISPOSABLE 98804287698 Active Estiven Erazo MD Active ADVOCATE UNDERPADS use daily As Needed INCONTINENCE SUPPLY DISPOSABLE 69102050480 Active Estiven Erazo MD Active ALBUTEROL SULFATE (2.5 MG/3ML) 0.083% INHALATION NEBULIZATION SOLUTION 1 via Hand held neb every 4 - 6 hours as needed ALBUTEROL SULFATE 42256165891 Active Estiven Erazo MD Active DEPEND ADJUSTABLE UNDERWEAR LG use daily As Needed INCONTINENCE SUPPLY DISPOSABLE 64747670985 Active Estiven Erazo MD Active PROAIR HFA 108 (90 BASE) MCG/ACT INHALATION AEROSOL SOLUTION 2 puffs every 4 - 6 hours as needed ALBUTEROL SULFATE 66762650987 Active Estiven Eraoz MD Active AZITHROMYCIN 250 MG ORAL TABLET 2 tablets by mouth on day one then one tablet by mouth each day for a total of 5 days AZITHROMYCIN 250 MG ORAL TABLET 465680 AZITHROMYCIN Inactive AZITHROMYCIN 250 MG ORAL TABLET 2 tablets by mouth on day one then one tablet by mouth each day for a total of 5 days AZITHROMYCIN 250 MG ORAL TABLET 923984 AZITHROMYCIN Inactive PREDNISONE 20 MG ORAL TABLET 2 tabs By Mouth daily x 5 days PREDNISONE 20 MG ORAL TABLET 696383 PREDNISONE Inactive PROMETHAZINE VC/CODEINE 6.25-5-10 MG/5ML ORAL SYRUP 1 tsp by mouth every 4 hours as needed for cough PROMETHAZINE VC/CODEINE 6.25-5-10 MG/5ML ORAL SYRUP 679742 [id number] Inactive BROMFED DM 30-2-10 MG/5ML ORAL SYRUP 5 ml By Mouth Three Times a Day As Needed BROMFED DM 30-2-10 MG/5ML ORAL SYRUP 1739106 [id number] Inactive ONDANSETRON 8 MG ORAL TABLET DISINTEGRATING 1 tab By Mouth Three Times a Day As Needed nausea ONDANSETRON 8 MG ORAL TABLET DISINTEGRATING 268151 ONDANSETRON Inactive AZITHROMYCIN 250 MG ORAL TABLET 2 tablets by mouth on day one then one tablet by mouth each day for a total of 5 days AZITHROMYCIN 250 MG ORAL TABLET 179339 AZITHROMYCIN Inactive AZITHROMYCIN 250 MG ORAL TABLET 2 tablets by mouth on day one then one tablet by mouth each day for a total of 5 days AZITHROMYCIN 250 MG ORAL TABLET 483150 AZITHROMYCIN Inactive PROMETHAZINE-CODEINE 6.25-10 MG/5ML ORAL SYRUP 5 ml By Mouth Three Times a Day As Needed for cough PROMETHAZINE-CODEINE 6.25-10 MG/5ML ORAL SYRUP 206331 PROMETHAZINE-CODEINE Inactive PROMETHAZINE-CODEINE 6.25-10 MG/5ML ORAL SYRUP 5 ml By Mouth Three Times a Day As Needed for cough PROMETHAZINE-CODEINE 6.25-10 MG/5ML ORAL SYRUP 874275 PROMETHAZINE-CODEINE Inactive FLONASE ALLERGY RELIEF 50 MCG/ACT NASAL SUSPENSION 2 sprays each nostril every day FLONASE ALLERGY RELIEF 50 MCG/ACT NASAL SUSPENSION 4557858 FLUTICASONE PROPIONATE Inactive PROMETHAZINE-CODEINE 6.25-10 MG/5ML ORAL SYRUP 5 ml po Four Times a Day As Needed for cough PROMETHAZINE-CODEINE 6.25-10 MG/5ML ORAL SYRUP 842430 PROMETHAZINE-CODEINE Inactive AZITHROMYCIN 250 MG ORAL TABLET 2 tablets by mouth on day one then one tablet by mouth each day for a total of 5 days AZITHROMYCIN 09335951918 No Longer Active Estiven Erazo MD Active AZITHROMYCIN 250 MG ORAL TABLET 2 tablets by mouth on day one then one tablet by mouth each day for a total of 5 days AZITHROMYCIN 88286242575 No Longer Active Estiven Erazo MD Active PREDNISONE 20 MG ORAL TABLET 2 tabs By Mouth daily x 5 days PREDNISONE 22398669462 No Longer Active Estiven Erazo MD Active PROMETHAZINE VC/CODEINE 6.25-5-10 MG/5ML ORAL SYRUP 1 tsp by mouth every 4 hours as needed for cough [id number] 79808714424 No Longer Active Estiven Erazo MD Active BROMFED DM 30-2-10 MG/5ML ORAL SYRUP 5 ml By Mouth Three Times a Day As Needed [id number] 29312054596 No Longer Active Christian Arredondo MD Active ONDANSETRON 8 MG ORAL TABLET DISINTEGRATING 1 tab By Mouth Three Times a Day As Needed nausea ONDANSETRON 65828855606 No Longer Active Estiven Erazo MD Active AZITHROMYCIN 250 MG ORAL TABLET 2 tablets by mouth on day one then one tablet by mouth each day for a total of 5 days AZITHROMYCIN 12538142932 No Longer Active Estiven Erazo MD Active AZITHROMYCIN 250 MG ORAL TABLET 2 tablets by mouth on day one then one tablet by mouth each day for a total of 5 days AZITHROMYCIN 69386615053 No Longer Active Estiven Erazo MD Active PROMETHAZINE-CODEINE 6.25-10 MG/5ML ORAL SYRUP 5 ml By Mouth Three Times a Day As Needed for cough PROMETHAZINE-CODEINE 46383716154 No Longer Active Estiven Erazo MD Active PROMETHAZINE-CODEINE 6.25-10 MG/5ML ORAL SYRUP 5 ml By Mouth Three Times a Day As Needed for cough PROMETHAZINE-CODEINE 94277474403 No Longer Active Estiven Erazo MD Active FLONASE ALLERGY RELIEF 50 MCG/ACT NASAL SUSPENSION 2 sprays each nostril every day FLUTICASONE PROPIONATE 70510260895 No Longer Active Estiven Erazo MD Active PROMETHAZINE-CODEINE 6.25-10 MG/5ML ORAL SYRUP 5 ml po Four Times a Day As Needed for cough PROMETHAZINE-CODEINE 22632747937 No Longer Active Estiven Erazo MD Active Immunizations Vaccine Administration Date Value Standard Description influenza immunization (Flu Vax) has been administered given influenza virus vaccine, unspecified formulation influenza immunization (Flu Vax) has been administered given influenza virus vaccine, unspecified formulation PEDIATRIC PNEUMOCOCCAL VACCINE ([id number]) #1 given pneumococcal conjugate vaccine, 13 valent Vital Signs Date Name Value Unit Range Description blood pressure, diastolic 81 mm[Hg] BP ellington blood pressure, systolic 121 mm[Hg] BP sys height E&M 59 [in_us] Bdy height pulse rate E&M 80 /min Heart rate respiratory rate E&M 18 /min Resp rate temperature E&M 98 [degF] Body temperature weight E&M 155.25 [lb_av] Weight Measured blood pressure, diastolic 84 mm[Hg] BP ellington blood pressure, systolic 128 mm[Hg] BP sys height E&M 59 [in_us] Bdy height pulse rate E&M 79 /min Heart rate respiratory rate E&M 16 /min Resp rate temperature E&M 98 [degF] Body temperature weight E&M 158.50 [lb_av] Weight Measured blood pressure, diastolic, second observation 78 mm[Hg] [...] temperature weight E&M 159.60 [lb_av] Weight Measured Diagnostic Results Date Name [...] - Hematology platelet count 254 X10E3/UL 10*3/mm3 795-668 5941/06/27 lymphocyte count, blood, automated 2.9 X10E3/UL 10*3/mm3 0.7-3.1 Encounters Date Encounter Provider Code Facility 17:19:23 CDT Est Patient Exp Problem - 65516 Estiven Erazo MD CPT-23502 [facility] 12:56:10 CDT Est Patient Exp Problem - 16544 Estiven Erazo MD CPT-15334 [facility] 23:01:55 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 Patient Exp Problem - 98726 Estiven Erazo MD [facility]-93436 [facility] 16:41:54 CDT Est Patient Exp Problem - 38080 Estiven Erazo MD [facility]-47485 [facility] 17:15:45 CDT Est Patient Exp Problem - 00666 Estiven Erazo MD CPT-07077 [facility] 17:59:05 CDT Est Patient Exp Problem - 30116 Pearl Murillo MD (res) CPT-77616 [facility] 12:31:51 CDT Est Patient Exp Problem - 89063 Estiven Erazo MD [facility]-01590 [facility] 13:32:22 CDT Est Patient Exp Problem - 82541 Estiven Erazo MD CPT-40314 [facility] 12:53:02 CDT Est Patient Exp Problem - 48600 Estiven Erazo MD [facility]-41106 [facility] 13:46:07 CDT Est Patient Exp Problem - 98689 Estiven Erazo MD CPT-74341 [facility] 12:40:34 CDT Est Patient Exp Problem - 10525 Estiven Erazo MD CPT-50740 [facility] 15:59:37 CDT Est Patient Exp Problem - 34482 Coleen Mix D.O. 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 New Patient Detailed - 24060 Estiven Erazo MD CPT-03613 [facility] Procedures Code Procedure Name Date Entry Date Standard Description CPT-09767 Psychotherapy 30 (16-37*) min - 78929 (with patient and/or family member) 08:53:39 CDT CPT-01328 Psychotherapy 30 (16-37*) min - 32623 (with patient and/or family member) 10:03:55 CDT CPT-02608 Diagnostic evaluation (no medical) - 57700 13:09:35 CDT CPT-63141 EKG - 12 Leads with Interpretation and Report 15:22:27 CDT CPT-96382 INFLUENZA VACCINE QUADRIVALENT 3 YRS PLUS IM 16:41:54 CDT CPT-86414 Admin of Vaccine - Injection - 1 16:41:54 CDT CPT-J1885 Injection, ketorolac tromethamine (toradol), per 15 mg 12:31:51 CDT CPT-08964 HEMOGLOBIN A1C - In House 13:46:07 CDT CPT-23229 Admin of Vaccine - Injection - Each Add'l 11:47:34 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
--- OUTSIDE RECORDS SUMMARY | 2018-12-26 10:10 | XMS REPORT ---
Author Author [facility] Address Unknown Phone Unavailable Care Team Providers Care Product Management Specialist Name Role Phone KERRY REIS Unavailable Unavailable KANE MCNAIR Unavailable Unavailable Problems This patient has no known problems. Allergies, Adverse Reactions, Alerts This patient has no known allergies or adverse reactions. Medications This patient has no known medications. Results Test Description Test Time Test Comments Text Results Atomic Results Result Comments CHEST 2 VIEWS 2018-12-24 16:02:00 [facility] [address] [place] [address] Patient Name: NACHO GAMBINO MR #: [id number] : 1950 Age/Sex: 68/F Req #: [id number] Adm Physician: Ordered by: KERRY REIS MD Report #: [id number] Location: OR Room/Bed: Procedure: [id number] DX/CHEST 2 VIEWS Exam Date: 12/24/18 Exam Time: 1516 REPORT STATUS: Signed EXAMINATION: CHEST 2 VIEWS INDICATION: Preop. Bladder surgery PRE-OP ORDERS [id number] COMPARISON: None FINDINGS: TUBES and LINES: None. LUNGS: Lungs are well inflated. Lungs are clear. There is no evidence of pneumonia or pulmonary edema. PLEURA: No pleural effusion or pneumothorax. HEART AND MEDIASTINUM: The cardiomediastinal silhouette is unremarkable. BONES AND SOFT TISSUES: No acute osseous lesion. Soft tissues are unremarkable. UPPER ABDOMEN: No free air under the diaphragm. IMPRESSION: No acute thoracic abnormality. Signed by: Dr. Heriberto Oro M.D. on 12/24/2018 4:02 PM Dictated By: HERIBERTO ORO MD, MD 01 Transcribed By: EULALIO on 12/24/181601 COPY TO: KERRY REIS MD MRI PELVIS WOW 2018-11-28 15:53:00 [place] [address] Patient Name: NACHO GAMBINO MR #: [id number] : 1950 Age/Sex: 68/F Req #: [id number] Adm Physician: Ordered by: KANE MCNAIR MD Report #: [id number] Location: MRI Room/Bed: Procedure: [id number] MRI/MRI PELVIS WOW Exam Date: Exam Time: REPORT STATUS: Signed MRI ABDOMEN AND PELVIS Indication: 2 years of diffuse abdominal and pe lvic pain Technique: Multiplanar, multi-sequential MRI was performed both before and after the intravenous administration of 14 cc of gadolinium. Comparison: None Findings: Lung bases: Mild bibasilar atelectasis. Visualized portion of the mediastinum is normal Liver: Normal T1 and T2 signal. The liver measures 16 cm in maximum dimension. No evidence of mass. Normal enhancement Gallbladder: Absent Biliary tree: Mild central intrahepatic biliary duct distention. The cystic duct is normal in appearance. The proximal common bile duct measures 9 mm in diameter. The mid common bile duct measures 8 mm in diameter. The distal common bile duct measures 4 mm in diameter. No intraluminal filling defects. No evidence of beading or narrowing. Pancreas: Normal T1 and T2 signal. No mass or ductal dilatation. Spleen: Normal size and signal. No mass Adrenal glands: No mass. Kidneys: No hydronephrosis. Symmetric enhancement of the parenchyma. No evidence of mass Lymph nodes: No enlarged abdominal, mesenteric, or retroperitoneal lymph nodes Bowel: Stomach:Normal. Small bowel:Normal in diameter with normal wall thickness. Large bowel:Normal in diameter with normal wall thickness. Appendix: Not visualized and may be absent. Bladder: Normal. Uterus: Absent. There are no adnexal masses. Peritoneum/retroperitoneum: No free fluid or fluid collection. Vasculature: Normal in morphology and widely patent. Bones: Normal marrow signal. Mild levoscoliosis of the lumbar spine. Diffuse degenerative changes of the spine. Soft tissues: Midline abdominal wall scar. No evidence of hernia. IMPRESSION: 1. Postoperative changes as described above. No evidence of mass or lymphadenopathy on this general abdomen protocol MRI to explain diffuse abdominal pain. MRI is not a substitute for screening studies such as colonoscopy. 2. Mild biliary ductal distention secondary to reservoir effe ct. Signed by: Dr. Kate Daley MD on 11/28/2018 4:01 PM Dictated By: KATE DALEY MD 1601 Transcribed By: EULALIO on 11/28/18 1601 COPY TO: KANE MCNAIR MD MRI ABDOMEN WOW 2018-11-28 15:53:00 [place] [address] Patient Name: NACHO GAMBINO MR #: [id number] : 1950 Age/Sex: 68/F Req #: [id number] Adm Physician: Ordered by: KANE MCNAIR MD Report #: [id number] Location: MRI Room/Bed: Procedure: [id number] MRI/MRI ABDOMEN WOW Exam Date: Exam Time: REPORT STATUS: Signed MRI ABDOMEN AND PELVIS Indication: 2 years of diffuse abdominal and pelvic pain Technique: Multiplanar, multi-sequential MRI was performed both before and after the intravenous administration of 14 cc of gadolinium. Comparison: None Findings: Lung bases: Mild bibasilar atelectasis. Visualized portion of the mediastinum is normal Liver: Normal T1 and T2 signal. The liver measures 16 cm in maximum dimension. No evidence of mass. Normal enhancement Gallbladder: Absent Biliary tree: Mild central intrahepatic biliary duct distention. The cystic duct is normal in appearance. The proximal common bile duct measures 9 mm in diameter. The mid common bile duct measures 8 mm in diameter. The distal common bile duct measures 4 mm in diameter. No intraluminal filling defects. No evidence of beading or narrowing. Pancreas: Normal T1 and T2 signal. No mass or ductal dilatation. Spleen: Normal size and signal. No mass Adrenal glands: No mass. Kidneys: No hydronephrosis. Symmetric enhancement of the parenchyma. No evidence of mass Lymph nodes: No enlarged abdominal, mesenteric, or retroperitoneal lymph nodes Bowel: Stomach:Normal. Small bowel:Normal in diameter with normal wall thickness. Large bowel:Normal in diameter with normal wall thickness. Appendix: Not visualized and may be absent. Bladder: Normal. Uterus: Absent. There are no adnexal masses. Peritoneum/retroperitoneum: No free fluid or fluid collection. Vasculature: Normal in morphology and widely patent. Bones: Normal marrow signal. Mild levoscoliosis of the lumbar spine. Diffuse degenerative changes of the spine. Soft tissues: Midline abdominal wall scar. No evidence of hernia. IMPRESSION: 1. Postoperative changes as described above. No evidence of mass or lymphadenopathy on this general abdomen protocol MRI to explain diffuse abdominal pain. MRI is not a substitute for screening studies such as colonoscopy. 2. Mild biliary ductal distention secondary to reservoir eff ect. Signed by: Dr. Kate Daley MD on 11/28/2018 4:01 PM Dictated By: KATE DALEY MD 1601 Transcribed By: EULALIO on 11/28/18 1601 COPY TO: KANE MCNAIR MD SCR MAMM BILATERAL LACI CAD DIGITAL 2018-10-03 12:16:37 - SCR MAMM BILATERAL LACI CAD DIGITALBILATERAL DIGITAL SCREENING MAMMOGRAM 3D/2D WITH CAD: 10/03/2018CLINICAL: Asymptomatic. Digital breast tomosynthesis was performed in addition to routine CC and MLO views. Current mammographic images were evaluated by either a [employer] M-Vu or a [employer] ImageChecker CAD (computer aided detection system). Comparison is made to exams dated 08/13/2017 mammogram, 017 mammogram, and 06/15/2015 mammogram - [facility]-. There are scattered fibroglandular tissues in both breasts. No suspicious mass, architectural distortion, malignant type calcification, or lymph node abnormality detected. Breast architecture is stable compared to prior exams.IMPRESSION: NEGATIVEThere is no mammographic evidence of malignancy. Resume annual screening mammography in one year. Jeremías Guajardo M.D. ss/penrad:10/03/2018 12:16:37 Green Marketing Analyst: Dania TRAMMELL, [facility]-FWletter sent: BIRADS 1-2 Normal Mammogram BI-RADS: 1 Negative
--- OUTSIDE RECORDS SUMMARY | 2018-12-26 10:10 | XMS REPORT | Clinical Summary ---
Author Author [facility] Address Unknown Phone Unavailable Care Team Providers Care Promotions Associate Name Role Phone Asked, No Pcp PCP Unavailable Allergies Comments Active Allergy Reactions Severity Noted Date Codeine 10/03/2016 seizures Iodine Other (See 10/03/2016 Comments) Latex 10/03/2016 Penicillins Diarrhea 10/03/2016 Acetaminophen 10/03/2016 Medications End Date Status Medication Sig Dispensed Refills Start Date Active albuterol (PROAIR HFA) 90 2 puffs every 0 mcg/actuation inhaler 4 - 6 hours 8 as needed Active dicyclomine (BENTYL) 20 Take 20 mg by 0 mg tablet mouth 4 (four) times a day. Pt doc told her to stop taking and come to the ER 11/25/2018 Discontinued ondansetron (ZOFRAN) 4 MG 0 tablet 7 11/25/2018 Discontinued CALCIUM CITRATE-VITAMIN 1 tab By 0 D2 ORAL Mouth Twice a 8 Day 11/25/2018 Discontinued loratadine 10 mg capsule 10 ml by 0 mouth nightly 8 01/06/2018 Discontinued naproxen (NAPROSYN) 375 Take 375 mg 0 MG tablet by mouth 2 (two) times a day with meals. 02/05/2018 nabumetone (RELAFEN) 500 Take 1 tablet 60 tablet 5 MG tablet (500 mg 8 total) by mouth 2 (two) times a day for 60 doses. 11/30/2018 levoFLOXacin (LEVAQUIN) Take 1 tablet 5 tablet 0 750 MG tablet (750 mg 9 total) by mouth daily for 5 days. Active Problems Problem Noted Date Greater trochanteric bursitis of left hip 01/06/2018 Moderate persistent asthma without complication 10/03/2016 Encounters Care Team Description Date Type Specialty Scott Vargas MD Acute cystitis without hematuria (Primary Dx) 11/25/2018 Emergency Emergency Medicine Molly Harman RN 11/25/2018 Telephone Access Molly Harman RN 11/25/2018 Nurse Triage Access Estiven Erazo MD Cough 03/10/2018 Hospital Radiology Encounter Estiven Erazo MD Cough 03/10/2018 Hospital Radiology Encounter Hemal Juarez MD Greater trochanteric bursitis of left hip (Primary Dx) 01/06/2018 Office Visit Orthopedic Surgery after 12/25/2017 Family History Medical History Relation Name Comments Liver disease Father Cancer Mother lung Relation Name Status Comments Father Mother Social History Date Tobacco Use Types Packs/Day Years Used Former Smoker Smokeless Tobacco: Never Used Alcohol Use Drinks/Week oz/Week Comments Never Alcohol Habits Answer Date Recorded How often do you have a drink containing alcohol? Never 11/25/2018 How many drinks containing alcohol do you have on Not asked a typical day when you are drinking? How often do you have six or more drinks on one Not asked occasion? Sex Assigned at Date Recorded Not on file Industry Job Start Date Occupation Not on file Not on file Not on file Travel End Travel History Travel Start No recent travel history available. Last Filed Vital Signs Time Taken Vital Sign Reading 11/25/2018 10:56 PM CDT Blood Pressure 117/58 11/25/2018 10:56 PM CDT Pulse 62 11/25/2018 10:56 PM CDT Temperature 36 C (96.8 F) 11/25/2018 10:56 PM CDT Respiratory Rate 17 11/25/2018 10:56 PM CDT Oxygen Saturation 96% - Inhaled Oxygen - Concentration 01/06/2018 11:11 AM CDT Weight 73.5 kg (162 lb) 11/25/2018 2:34 PM CDT Height 149.9 cm (4' 11") 01/06/2018 11:11 AM CDT Body Mass Index 32.72 Plan of Treatment Health Maintenance Due Date Last Done Comments BREAST CANCER SCREENING 2000 COLONOSCOPY SCREENING 2000 SHINGLES VACCINES (#1) 2000 65+ PNEUMOCOCCAL VACCINE 2015 (1 of 2 - PCV13) INFLUENZA VACCINE 01/08/2019 04/01/2018, 07/12/2017 Procedures Comments Procedure Name Priority Date/Time Associated Diagnosis LACTIC ACID LEVEL, SEPSIS Timed 11/25/2018 - NOW AND REPEAT 2X EVERY 8:49 PM CDT 3 HOURS LACTIC ACID LEVEL, SEPSIS Timed 11/25/2018 - NOW AND REPEAT 2X EVERY 5:44 PM CDT 3 HOURS GRAM STAIN STAT 11/25/2018 5:30 PM CDT URINE CULTURE STAT 11/25/2018 5:30 PM CDT URINALYSIS SCREEN AND STAT 11/25/2018 MICROSCOPY, WITH REFLEX 5:14 PM CDT TO CULTURE BLOOD CULTURE, AEROBIC & Routine 11/25/2018 ANAEROBIC 3:30 PM CDT BLOOD CULTURE, AEROBIC & Routine 11/25/2018 ANAEROBIC 3:25 PM CDT PARTIAL THROMBOPLASTIN STAT 11/25/2018 TIME (PTT) 2:57 PM CDT PROTHROMBIN TIME WITH INR STAT 11/25/2018 2:57 PM CDT LACTIC ACID LEVEL, SEPSIS STAT 11/25/2018 - NOW AND REPEAT 2X EVERY 2:57 PM CDT 3 HOURS ESTIMATED GFR STAT 11/25/2018 2:57 PM CDT COMPREHENSIVE METABOLIC STAT 11/25/2018 PANEL 2:57 PM CDT HC COMPLETE BLD COUNT STAT 11/25/2018 W/AUTO DIFF 2:57 PM CDT XR CHEST 2 VW Routine 03/10/2018 Cough 12:36 PM CDT XR ANKLE 2 VW RIGHT Routine 03/10/2018 Cough 12:35 PM CDT after 12/25/2017 Results * Lactic acid level, SEPSIS - Now and repeat 2x every 3 hours (11/25/2018 8:49 PM CDT) Only the most recent of 3 results within the time period is included. Lactic acid 0.8 0.5 - 2.2 mmol/L [facility] Specimen Blood Performing Organization Address City/State/Zipcode Phone Number [facility] [place] [address] [place] [address] [address] [facility] [address] [place] [address] HOSPITAL * Gram stain (11/25/2018 5:30 PM CDT) Gram stain Many WBC's TAPIA result Occasional Gram positive cocci [facility] in [facility] Many Gram negative rods Comment: Specimen Information Specimen Source: Urine Specimen Site: Clean catch Specimen Urine Performing Organization Address City/State/Zipcode Phone Number [facility] DEPARTMENT OF [address] [place] [address] PATHOLOGY AND GENOMIC MEDICINE [address] * Urine culture (11/25/2018 5:30 PM CDT) Urine culture Escherichia coli [place] isolate >10-5 cfu/ml [facility] ([facility] Comment: Specimen Information Specimen Source: Urine Specimen Site: Clean catch Specimen Urine Antibiotic Method Susceptibility Organism Ampicillin HERMAN >16 mcg/mL: Resistant Escherichia coli Amoxicillin/Clavulanate HERMAN 8/4 mcg/mL: Susceptible Escherichia coli Amikacin HERMAN <=4 mcg/mL: Susceptible Escherichia coli Aztreonam HERMAN <=1 mcg/mL: Susceptible Escherichia coli Ceftazidime HERMAN <=0.5 mcg/mL: Susceptible Escherichia coli Ciprofloxacin HERMAN 1 mcg/mL: Susceptible Escherichia coli Ceftriaxone HERMAN <=0.5 mcg/mL: Susceptible Escherichia coli Cefuroxime Sodium HERMAN <=4 mcg/mL: Susceptible Escherichia coli Cefazolin HERMAN 2 mcg/mL: Susceptible Escherichia coli Cefepime HERMAN <=0.5 mcg/mL: Susceptible Escherichia coli Nitrofurantoin HERMAN <=16 mcg/mL: Susceptible Escherichia coli Cefoxitin HERMAN <=4 mcg/mL: Susceptible Escherichia coli Gentamicin HERMAN <=1 mcg/mL: Susceptible Escherichia coli Imipenem HERMAN <=0.25 mcg/mL: Susceptible Escherichia coli Levofloxacin HERMAN <=1 mcg/mL: Susceptible Escherichia coli Meropenem HERMAN <=0.125 mcg/mL: Susceptible Escherichia coli Tobramycin HERMAN 1 mcg/mL: Susceptible Escherichia coli Ampicillin/Sulbactam HERMAN 16/8 mcg/mL: Resistant Escherichia coli Trimethoprim/Sulfamethoxazole HERMAN <=0.5/9.5 mcg/mL: Susceptible Escherichia coli Tetracycline HERMAN <=1 mcg/mL: Susceptible Escherichia coli Piperacillin/Tazobactam HERMAN <=2/4 mcg/mL: Susceptible Escherichia coli Ertapenem HERMAN <=0.125 mcg/mL: Susceptible Escherichia coli Tigecycline HERMAN <=0.5 mcg/mL: Susceptible Escherichia coli Performing Organization Address City/State/Zipcode Phone Number [facility] DEPARTMENT OF [address] [place] [address] PATHOLOGY [place] [address] HOSPITAL * Urinalysis screen and microscopy, with reflex to culture (11/25/2018 5:14 PM CDT) Specimen site Clean catch [facility] Color, UA Yellow [facility] Appearance, UA Cloudy [facility] Specific 1.017 1.001 - 1.035 [place] gravity, [facility] pH, UA 5.0 5.0 - 8.5 [facility] Protein, UA Negative Negative [facility] Glucose, UA Negative Negative [facility] Ketones, UA Negative Negative [facility] Bilirubin, UA Negative Negative [facility] Blood, UA Moderate (A) Negative [facility] Nitrite, UA Positive (A) Negative [facility] Urobilinogen, Negative <2.0 [facility] Leukocyte Large (A) Negative [place] esterase, [facility] Epithelial Moderate /HPF [place] cells, UA [facility] Round Many 0 - 1 /HPF [place] epithelial [facility] cells, [facility] WBC, UA >200 (H) 0 - 5 /HPF [facility] RBC, UA 23 (H) 0 - 5 /HPF [facility] Bacteria, UA Many (A) None seen [facility] Yeast, UA None seen [facility] Yeast with None seen [place] [facility] Specimen Urine Performing Organization Address City/[facility]/Zipcode Phone Number [facility] [address] [place] [id number] PATHOLOGY AND GENOMIC MEDICINE [facility] [address] * Blood culture, aerobic & anaerobic (11/25/2018 3:30 PM CDT) Only the most recent of 2 results within the time period is included. [facility] Blood culture No growth after 5 days of [place] isolate incubation. [facility] Comment: HOSPITAL Specimen Information Specimen Source: Blood Specimen Site: RA Specimen Blood Performing Organization Address City/[facility] Phone Number [facility] DEPARTMENT [address] [place] [address] PATHOLOGY AND [facility] MEDICINE [address] * Estimated GFR (11/25/2018 2:57 PM CDT) [facility] Estimated GFR 65 mL/min/1.73 m2 [place] Comment: [facility]its[facility] G1 >=90 Normal or high G2 60-89Mildly decreased I8x26-97 Mildly to moderately decreased U4d59-06 Moderately to severely decreased G4 15-29Severely decreased G5 <15Kidney failure The eGFR was calculated using the Chronic Kidney Disease Epidemiology Collaboration (CKD-EPI) equation. Interpretation is based on recommendations of the National Kidney Foundation-Kidney Disease Outcomes Quality Initiative (NKF-KDOQI) published in 2014. Specimen Plasma specimen Performing Organization Address City/[facility] Mex[facility]ode Phone Number [facility] [address] [place] [address] [address] MEDICINE [facility] [address] [place] [address] * Partial thromboplastin time, activated (11/25/2018 2:57 PM CDT) [facility] PTT 29.0 23.0 - 36.0 sec [place] Comment: [facility] PTT therapeutic range for [facility] unfractionated heparin is HOSPITAL 61.0-112.0 seconds which corresponds to Anti-Xa 0.3-0.7 U/ml. Note:Change in Panic Value The PTT Panic Value is changing from 110 sec. to 100 sec. due to new instrumentation and reagents. Correlation studies have been performed to validate this result. Specimen Blood Performing Organization Address City/State/Zipcode Phone Number [facility] OF [address] [place] [address] [address] MEDICINE [facility] [address] * Prothrombin time with INR (11/25/2018 2:57 PM CDT) Pathologist [facility] Prothrombin 13.5 11.5 - 14.[address] [facility] INR 1.06 [place] Comment: [facility] For patients on anticoagulant [place] therapy, reference ranges HOSPITAL below: Indication: INR Value Treatment of Venous Thrombosis, 2.0-3.0 pulmonary emboli, or prophylaxis of a venous thrombosis, or systemic emboli. High dose, high risk patients 3.0-4.5 with mechanical valves. NOTE:INR values over 3.0 are sometimes associated with gastrointestinal hemorrhage, especially values over 4.0. Specimen Blood Performing Organization Address City/[facility]/Zipcode Phone Number [facility] [address] [place] [address] [address] MEDICINE [facility] [address] [place] [address] * CBC with platelet and differential (11/25/2018 2:57 PM CDT) [facility] WBC 8.2 4.2 - 11.0 k/uL [facility] RBC 4.42 4.04 - 5.86 m/uL [facility] HGB 13.1 11.5 - 15.3 g/dL [facility] HCT 41.4 34.0 - 45.0 % [facility] MCV 93.7 80.0 - 98.0 fL [facility] MCH 29.6 27.0 - 34.0 pg [facility] MCHC 31.6 31.5 - 36.5 g/dL [facility] RDW - SD 45.4 37.0 - 51.0 fL [facility] MPV 9.8 7.4 - 10.4 fL [facility] Platelet count 225 150 - 400 k/uL [facility] Nucleated RBC 0.00 /100 WBC [facility] Neutrophils 51.8 36.0 - 66.0 % [facility] Lymphocytes 43.1 24.0 - 44.0 % [facility] Monocytes 4.0 0.0 - 6.0 % [facility] Eosinophils 0.6 0.0 - 6.0 % [facility] Basophils 0.1 0.0 - 1.2 % [facility] Immature 0.4 0.0 - 1.0 % [place] granulocytes [facility] Specimen Blood Performing Organization Address City/State/Zipcode Phone Number [facility] [place] [address] PATHOLOGY AND GENOMIC MEDICINE [address] * Comprehensive metabolic panel (11/25/2018 2:57 PM CDT) Sodium 141 135 - 150 mEq/L [facility] Potassium 4.7 3.5 - 5.0 mEq/L [facility] Chloride 104 98 - 112 mEq/L [facility] CO2 27 24 - 31 mmol/L [facility] Anion gap 10@ANIO 7 - 15 mEq/L [facility] BUN 14 7 - 18 mg/dL [facility] Creatinine 0.90 0.50 - 0.90 mg/dL [facility] Glucose 92 65 - 100 mg/dL [facility] Calcium 9.5 8.8 - 10.2 mg/dL [facility] Protein 7.9 6.3 - 8.3 g/dL [facility] Albumin 4.4 3.5 - 5.0 g/dL [facility] A/G ratio 1.3 0.7 - 3.8 [facility] Alkaline 105 (H) 0 - 104 U/L [place] phosphatase [facility] AST 24 10 - 35 U/L [facility] ALT 23 5 - 50 U/L [facility] Total bilirubin 0.4 0.2 - 1.2 mg/dL [facility] Specimen Plasma specimen Performing Organization Address City/State/Zipcode Phone Number [facility] DEPARTMENT OF [address] [place] [address] [address] [facility] [address] [place], [place] [address] [place] [address] * XR Chest 2 Vw (03/10/2018 12:36 PM CDT) Specimen Narrative Performed At EXAMINATION:XR CHEST 2 VW [facility] CLINICAL HISTORY: R05 Cough COMPARISON:10/23/2012 IMPRESSION: No active disease in the chest. Lungs are clear. Cardiomediastinal silhouette is within normal limits. No effusion or pneumothorax noted. Visualized osseous structures are intact. [facility]-[id number] Procedure Note Interface, Radiology Results Incoming - 03/10/2018 12:48 PM CDT EXAMINATION: XR CHEST 2 VW CLINICAL HISTORY: R05 Cough COMPARISON: 10/23/2012 IMPRESSION: No active disease in the chest. Lungs are clear. Cardiomediastinal silhouette is within normal limits. No effusion or pneumothorax noted. Visualized osseous structures are intact. [facility]-[id number] Performing Organization Address City/[facility]/Zipcode Phone Number [facility] [address] [place] [address] * XR Ankle 2 Vw Right (03/10/2018 12:35 PM CDT) Specimen Narrative Performed At EXAMINATION:XR ANKLE 2 VW [...] swelling about the ankle. [facility]-[id number] Procedure Note Interface, Radiology Results Incoming - [...] swelling about the ankle. [facility]-[id number] Performing Organization Address City/State/Zipcode Phone Number [facility] [address] [place] [address] after 12/25/2017 Insurance Type Payer Benefit Subscriber ID Effective Phone Address Plan / Dates Group PPO HUMANA MEDICARE HUMANA xxxxxxxxx [id number] MEDICARE resent PPO/PFFS/E RS [facility] Commercial COMMERCIAL MISC MISC xxxxxxxxx 2016- COMMERCIAL Present Advance Directives Patient has advance care planning documents on file. For more information, jess worthington contact: Kendell Min [address] [place] [address]
[2018-12-26] MEDS: LEVOFLOXACIN 500MG/D5W 100ML 100 ML IV ONE (10:53)
[2018-12-26] MEDS: FENTANYL CITRATE/PF 100MCG/2 ML INJ ONE (12:00)
[2018-12-26] MEDS: MORPHINE SULFATE INJ 10 MG/ML ONE (12:12)
[2018-12-26] MEDS: ONDANSETRON HCL INJ 2MG/ML 2ML 2 MG/ML VIAL ONE (12:16)
[2018-12-26 12:55] VITALS: BP 124/71
--- NOTE | 2018-12-26 13:11 | Operative Report ---
DATE OF PROCEDURE: 12/26/2018 SURGEON: Gerardo Beth MD PREOPERATIVE DIAGNOSIS: Interstitial cystitis. POSTOPERATIVE DIAGNOSIS: Interstitial cystitis. OPERATION PERFORMED: Cystoscopy with hydraulic distention of the bladder. ANESTHESIA: General. INDICATIONS: This patient is a 68-year-old female, who has a long history of chronic interstitial cystitis. She has had hydraulic distentions in 2009 and in 2016, they have lasted her for many years. She now feels like she needs another hydraulic distention. Her last urinalysis showed no evidence of infection. For further details, please refer to the history and physical. The procedure was done in following fashion. PROCEDURE IN DETAIL: The patient was taken to the operating room, placed under general anesthesia and dressed and draped with Hibiclens in lithotomy position in usual fashion. Cystourethroscopy was performed using the 22-[place] Olympus cystoscope with a 70-degree oblique lens and the water bottle of sterile saline was held about 4 feet above the patient. The bladder was hydraulically distended first to 500 mL then to 600 mL then to 700 mL and again to 700 mL. The bladder was moderately trabeculated. Clear efflux was seen from both ureteral orifices. After this hydraulic distention progressed, numerous glomerulations of interstitial cystitis were identified. After hydraulically distending the bladder four times, the bladder was emptied and the cystoscope withdrawn. The patient tolerated procedure well and left the operating room in good condition. She will go home on Macrobid 100 mg p.o. twice daily for 10 days. She will have return appointment to see me again in two weeks. Gerardo Beth MD RICARDO/MODL /[id number]
== END | disposition home or self-care (01) ==
LOC: OR 10:07
PROVIDERS: ATTEND Urology
DX: N30.11 Interstitial cystitis (chronic) with hematuria (principal); N30.21 Other chronic cystitis with hematuria; D64.9 Anemia, unspecified; F41.9 Anxiety disorder, unspecified; J45.909 Unspecified asthma, uncomplicated; I34.8 Other nonrheumatic mitral valve disorders; D51.8 Other vitamin B12 deficiency anemias; Z01.810 Encounter for preprocedural cardiovascular examination; Z01.812 Encounter for preprocedural laboratory examination; Z01.811 Encounter for preprocedural respiratory examination; Z91.041 Radiographic dye allergy status; Z91.040 Latex allergy status; Z88.5 Allergy status to narcotic agent; Z88.0 Allergy status to penicillin; Z91.048 Other nonmedicinal substance allergy status; Z80.3 Family history of malignant neoplasm of breast; Z80.1 Family history of malignant neoplasm of trachea, bronchus and lung; Z80.8 Family history of malignant neoplasm of other organs or systems; Z81.1 Family history of alcohol abuse and dependence; Z84.89 Family history of other specified conditions
CPT/HCPCS: 36415; 71046; 80053; 85025; 85610; 85730; 93005; J1100; J1956; J2001; J2250; J2270; J2405; J3010